=== PATIENT | male | born 1980 | race Two or more races ===

== ENCOUNTER 2020-08-19 16:59 | Emergency (ER) | payer OTHER ==
[2020-08-19] MEDS ORDERED: LIDOCAINE 1% HCL (LOCAL ANESTH.) INJ 20ML MDV IJ ONE (18:45)
[2020-08-19 23:24] VITALS: BP 131/77
== END 2020-08-19 23:57 | disposition home or self-care (01) ==
LOC: ER 16:59 → EEVIPCON 16:59 → EDBD 16:59 → ER 23:57
DX: S43.005A Unspecified dislocation of left shoulder joint, initial encounter (principal); R56.9 Unspecified convulsions; W18.39XA Other fall on same level, initial encounter; Y93.89 Activity, other specified; Y92.89 Other specified places as the place of occurrence of the external cause; Y99.8 Other external cause status
CPT/HCPCS: 23650; 70450; 73030